=== PATIENT | male | born 1985 | race Caucasian/White ===

== ENCOUNTER 2025-09-08 13:56 | Emergency (ER) | payer OTHER, SELFPAY ==
--- NOTE | ~2025-09-08 | XR_ITS ---
EXAMINATION: XR FOOT 3 OR MORE VIEWS RIGHT HISTORY: redness near big toe. osteo? Fracture? COMPARISON: There are no prior studies available for comparison. FINDINGS: Three views of the right foot are submitted. Osseous mineralization is normal. There is no fracture or dislocation. The joint spaces are preserved. The soft tissues are unremarkable. XR/XR foot RT min 3V IMPRESSION: Unremarkable examination of the right foot. Electronically signed by: Mingo Stern MD 09/08/2025 02:36 PM EDT
[2025-09-08 14:15] VITALS: BP 130/62; PULSE 69; RESP 16; TEMP 37; O2SAT 97; BMI 31.7
[2025-09-08 14:30] LABS: MANUAL DIFF FLAG NO
[2025-09-08 14:31] LABS: Hematocrit 44.1 % (42.0-52.0); Hemoglobin 14.8 g/dl (14.0-18.0); Imm Gran Abs Auto 0.02 X10*3/uL (0.00-0.03); Imm Gran Pct Auto 0.3 % (0.0-0.4); Lymphocytes Absolute Auto 2.1 X10*3/uL (1.2-4.9); Mean Corpuscular HGB Conc 33.6 g/dl (31.0-36.0); Mean Corpuscular Hemoglobin 28.8 pg (27.0-33.0); Mean Corpuscular Volume 86.0 fL (80.0-98.0); NRBC Abs Auto 0.000 X10*3/uL (0.0-0.012); NRBC Pct Auto 0.0 /100WBC (0.0-0.2); Platelet Count 287 X10*3/uL (160-400); Red Blood Count 5.13 X10*6/uL (4.60-5.80); White Blood Count 7.6 X10*3/uL (4.8-10.8)
[2025-09-08 14:47] LABS: Alanine Aminotransferase 40 U/L (0-40); Albumin Level 5.3 g/dL (3.5-5.0); Alkaline Phosphatase 87 U/L (39-117); Anion Gap 14 (12-20); Aspartate Amino Transferase 24 U/L (5-37); Blood Urea Nitrogen 12 mg/dL (9-16); Calcium 10.3 mg/dL (8.4-10.2); Carbon Dioxide 27 mmol/L (22-29); Chloride 106 mmol/L (96-108); Creatinine Clr Calc Pharmacy 90.6; Estimated Glomerular Filt Rate > 60; Potassium 4.2 mmol/L (3.3-5.1); Sodium 143 mmol/L (135-145); Total Protein 8.2 g/dL (6.5-8.0); Uric Acid 11.1 mg/dL (3.4-7.0)
--- NOTE | 2025-09-08 15:17 | ED.GENADULT ---
HPI - General Adult General Chief complaint: Extremity Problem Stated complaint: R foot pain Time Seen by Provider: 09/08/25 14:52 Source: patient Mode of arrival: ambulatory Limitations: no limitations History of Present Illness ED Provider: Nazario Boyer HPI narrative: 39 yold male presents to the ED for pain at joint of right big toe without any trauma. Patietn states also redness. patient states no fever, chills, open wounds, or pmh of diabetes Related Data Previous Rx's ?Medication ?Instructions ?Recorded cephalexin 500 mg capsule 500 mg PO Q12H 7 days #14 caps 09/08/25 indomethacin 50 mg capsule 50 mg PO QID 5 days #20 caps 09/08/25 prednisone 20 mg tablet 40 mg (2 x 20 mg) PO DAILY 5 days 09/08/25 #10 tabs Allergies Allergy/AdvReac Type Severity Reaction Status Date / Time Sulfa (Sulfonamide Allergy Unknown Verified 09/08/25 14:17 Antibiotics) Review of Systems Review of Systems: right big toe joint redness/pain Yes all other systems are reviewed and are negative [facility] Social History Social History Advance Directives: No Advance Directives Information Provided: No Physical Exam ED Vital Signs: Vital Signs - 24 hr 09/08/25 14:15 Temperature 98.6 F Pulse Rate 69 Respiratory Rate 16 Blood Pressure 130/62 Pulse Oximetry 97 Oxygen Delivery Method Room Air BMI result Body Mass Index 31.7 Const General: cooperative, healthy appearing, comfortable, no acute distress, well developed, alert, awake and Physically active Orientation/consciousness: patient oriented x3 HENMT Head: Yes normal to inspection, Yes No palpable skull fracture present, Yes normocephalic and Yes atraumatic Ears: hearing grossly normal bilaterally, external ears normal and TM's normal bilaterally General nose exam: Normal external nose present, Normal nares present and No nasal polyps present Mouth: Normal oral and palatal mucosa present, lip normal and tongue normal Throat: Yes posterior oropharynx normal, Yes tonsils normal and Yes uvula midline Eyes General: appearance normal, both eyes and all related structures Neck Neck: Yes normal visual inspection, Yes full ROM, Yes no lymphadenopathy, Yes no meningeal signs, Yes trachea midline, Yes supple, No anterior neck swelling and No tender Chest Chest palpation & inspection: normal inspection of the chest and normal palpation of entire chest wall Resp Effort & Inspection: normal respiratory effort and able to speak in complete sentences Cardio Jugular venous distension: no JVD Heart sounds: S1 normal heart sound present and S2 normal heart sound present GI Inspection: Yes normal to inspection Palpation (GI): Soft to palpation, not firm, nontender, no guarding and not rigid General: Yes no CVA tenderness Back/Spine/Pelvis Back: no CVA tenderness and No back tenderness Skin General skin exam: no rashes or lesions noted, elasticity normal and turgor normal Neuro General: patient oriented x3, tone normal, moves all extremities, Normal light touch and pain sensation, no meningeal signs, no focal motor deficits and CN's II-XI intact bilaterally Extrem General: Yes normal to inspection, Yes full ROM and Yes capillary refill normal Ankle/foot/toe images:  1. positive for redness, swelling, tenderness. negative for ecchymosis, crepitus, wounds or deformities. rest of extremities normal. motor, neuro, and vascular exam is intact. 2. positive for redness, swelling, tenderness. negative for ecchymosis, crepitus, wounds or deformities. rest of extremities normal. motor, neuro, and vascular exam is intact. Psych Appearance: grossly normal, well kempt and not disheveled Medications Administered Discontinued Medications Generic Name Dose Route Start Last Admin Trade Name Freq PRN Reason Stop Dose Admin Ketorolac Tromethamine 30 mg 09/08/25 15:15 09/08/25 15:22 Ketorolac Tromethamine 30 Mg/Ml Vial IM 09/08/25 15:16 30 mg ONCE ONE Administration Prednisone 40 mg 09/08/25 15:15 09/08/25 15:22 Prednisone 20 Mg Tablet PO 09/08/25 15:16 40 mg ONCE ONE Administration Medical Decision Making Medical Decision Making [facility] Narrative: 39-year-old male presents to ED for pain near joint of right big toe without any trauma. Patient states redness and swelling in the area. Rest of the foot left lower extremity normal. Patient denies any calf pain, chest pain, fever, or chills. X-ray negative for fracture or signs of osteomyelitis. Labs indicative of uric acid elevation indicate of gout. Not suspecting osteomyelitis, DVT, necrotizing fasciitis, arterial occlusion, compartment syndrome, septic joint, or any other life-threatening etiology. Differential Diagnosis Differential Diagnoses: The differential diagnosis associated with the presentation includes (Gout, cellulitis, osteomyelitis, fracture) Admission/Observation Consideration of admission/observation: Escalation of care including admission/observation considered Lab Data MDM Lab Attestation statement: I reviewed the patient's lab results. 09/08/25 14:25 09/08/25 14:24 Labs: Lab Results 09/08/25 09/08/25 Range/Units 14:24 14:25 WBC 7.6 (4.8-10.8) X10*3/uL RBC 5.13 (4.60-5.80) X10*6/uL Hgb 14.8 (14.0-18.0) g/dl Hct 44.1 (42.0-52.0) % MCV 86.0 (80.0-98.0) fL MCH 28.8 (27.0-33.0) pg MCHC 33.6 (31.0-36.0) g/dl RDW 12.0 (11.0-16.0) % Plt Count 287 (160-400) X10*3/uL MPV 9.1 L (9.4-12.4) fL Immature Gran % (Auto) 0.3 (0.0-0.4) % Neut % (Auto) 57.7 (45-73) % Lymph % (Auto) 27.9 (20-40) % [place] % (Auto) 11.1 H (2-11) % Eos % (Auto) 2.5 (0-4) % Baso % (Auto) 0.5 (0-2) % Lymph # (Auto) 2.1 (1.2-4.9) X10*3/uL [place] # (Auto) 0.8 (0.1-1.2) X10*3/uL Eos # (Auto) 0.2 (0.0-0.4) X10*3/uL Baso # (Auto) 0.0 (0.0-0.2) X10*3/uL Abs Immat Gran (auto) 0.02 (0.00-0.03) X10*3/uL Absolute Neuts (auto) 4.4 (2.0-8.3) x10*3/uL Absolute Nucleated RBC 0.000 (0.0-0.012) X10*3/uL Nucleated RBC % (auto) 0.0 (0.0-0.2) /100WBC ESR 21 H (0-15) MM/HR Sodium 143 (135-145) mmol/L Potassium 4.2 (3.3-5.1) mmol/L Chloride 106 (96-108) mmol/L Carbon Dioxide 27 (22-29) mmol/L Anion Gap 14 (12-20) BUN 12 (9-16) mg/dL Creatinine 1.26 (0.5-1.4) mg/dL Estim Creat Clear Calc 90.6 Estimated GFR > 60 Random Glucose 115 (60-115) mg/dL Uric Acid 11.1 H (3.4-7.0) mg/dL Calcium 10.3 H (8.4-10.2) mg/dL Total Bilirubin 1.0 (0.0-1.0) mg/dL AST 24 (5-37) U/L ALT 40 (0-40) U/L Alkaline Phosphatase 87 (39-117) U/L C-Reactive Protein 6.01 H (< or = 0.50) mg/dL Total Protein 8.2 H (6.5-8.0) g/dL Albumin 5.3 H (3.5-5.0) g/dL Independent Interpretation I performed an independent interpretation of an: Plain X-Ray Radiology Impression Discussion of test interpretation with radiology: I have reviewed the radiologist's reading. Independent Historian Clinical information obtained from an independent historian. History obtained from or confirmed by: Other (patient) Discharge Plan Discharge Clinical Impression: Gout Patient Disposition: Home, Self-Care Instructions: Low Purine Diet (ED), Gout (ED) Additional Instructions: Recommend follow up with primary care provider. REturn to the ED immeidatley for any worsening pain, fever, chills, worsening redness, leg swelling, calf pain, chest pain, shortness of breath, or any other concerning symptoms. You will be discharged with indomethacin and steroids. ALso you will be discharged with antibiotics for possible celluliits. Prescriptions: New indomethacin 50 mg capsule 50 mg PO QID 5 Days Qty: 20 0RF Rx Instructions: administer with food or milk prednisone 20 mg tablet 40 mg PO DAILY 5 Days Qty: 10 0RF cephalexin 500 mg capsule 500 mg PO Q12H 7 Days Qty: 14 0RF Referrals: [facility], Internal Medicine] - 2 days Referral Note: Gout versus cellulitis exacerbation. Clinical Impression: Gout Stand Alone Forms: Work/School Release Interventions: ED Discharge Assessment Last Done: 09/08/25 15:58 Discharge Date/Time: 09/08/25 15:58 Print Language: Ecuadorean
[2025-09-08 15:58] VITALS: BP 130/62; PULSE 69; RESP 16; TEMP 37; O2SAT 97
--- OUTSIDE RECORDS SUMMARY | 2025-09-08 19:06 | XMS_ITS | Encounter Summary ---
Author Organization [facility] Address [address] [place] [address] Care Team Providers Care Pit Slagman Name Role Phone Pcp, No Primary Care Provider Unavailabl e Encounter Details Date Type Department Care Team (Late st Contact Info) Description 09/14/2021 Erroneous Encounter [facility]PT [address] [place] [phone] Provider, MD Sammie Social History Tobacco Use Types Packs/Day Years Used Date Smoking Tobacco: Never Assessed Sex and Gender Information Value Date Recorded Sex Assigned at Not on file Legal Sex Male 2:35 PM EDT Gender Identity Not on file Sexual Orientation Not on file documented as of this encounter Plan of Treatment Not on file documented as of this encounter Visit Diagnoses Not on filedocumented in this encounter Care Teams Pit Slagman Relationship Specialty Start Date End Date Pcp, No PCP - General 07/19/15 documented as of this encounter
--- OUTSIDE RECORDS SUMMARY | 2025-09-08 19:06 | XMS_ITS | Encounter Summary ---
Author Organization [facility] Address [address] [place] [address] Care Team Providers Care Resident Care Associate Name Role Phone Pcp, No Primary Care Provider Unavailabl e Encounter Details Date Type Department Care Team (Late st Contact Info) Description 08/20/2021 Erroneous Encounter [facility] [address] [place] [id number] Provider, MD Sammie Social History Tobacco Use [...] on filedocumented in this encounter Care Teams Resident Care Associate Relationship Specialty Start Date End Date Pcp, No PCP - General 07/19/15 documented as of this encounter
--- OUTSIDE RECORDS SUMMARY | 2025-09-08 19:06 | XMS_ITS | Encounter Summary ---
Author Organization [facility] Address [address] [place] [address] Care Team Providers Care Guest Relations Coordinator Name Role Phone Pcp, No Primary Care Provider Unavailabl e Encounter Details Date Type Department Care Team (Late st Contact Info) Description 07/23/2021 Erroneous Encounter [facility]PT [address] [place] [phone] Provider, MD Sammie Social History Tobacco Use [...] on filedocumented in this encounter Care Teams Guest Relations Coordinator Relationship Specialty Start Date End Date Pcp, No PCP - General 07/19/15 documented as of this encounter
--- OUTSIDE RECORDS SUMMARY | 2025-09-08 19:06 | XMS_ITS | Encounter Summary ---
Author Organization [facility] Address [address] [place] [address] Care Team Providers Care Nurse Emergency Room Name Role Phone Pcp, No Primary Care Provider Unavailabl e Encounter Details Date Type Department Care Team (Late st Contact Info) Description 12/07/2021 Erroneous Encounter [facility]PT [address] [place] [id number] Provider, MD Sammie Social History Tobacco Use [...] on filedocumented in this encounter Care Teams Nurse Emergency Room Relationship Specialty Start Date End Date Pcp, No PCP - General 07/19/15 documented as of this encounter
--- OUTSIDE RECORDS SUMMARY | 2025-09-08 19:06 | XMS_ITS | Encounter Summary ---
Author Organization [facility] Address [address] [place] [address] Care Team Providers Care Slope Hoist Operator Name Role Phone Pcp, No Primary Care Provider Unavailabl e Encounter Details Date Type Department Care Team (Late st Contact Info) Description 10/26/2021 Erroneous Encounter [facility]PT [address] [place] [place] [phone] Provider, MD Sammie Social History Tobacco Use [...] on filedocumented in this encounter Care Teams Slope Hoist Operator Relationship Specialty Start Date End Date Pcp, No PCP - General 07/19/15 documented as of this encounter
--- OUTSIDE RECORDS SUMMARY | 2025-09-08 19:06 | XMS_ITS | Clinical Summary ---
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/2015 Overview (08/26/2023): Regulatory diagnosis update for 08/24/23 Social History Tobacco Use Types Packs/Day Years Used Date Smoking Tobacco: Never Assessed Sex and Gender Information Value Date Recorded Sex Assigned at Not on file Legal Sex Male 2:35 PM EDT Gender Identity Not on file Sexual Orientation Not on file Plan of Treatment Health Maintenance Due Date Last Done Comments Hepatitis C Virus Screening 1985 HIV Screening 1998 DTaP/Tdap/Td Vaccines (1 - Tdap) 2004 Hepatitis B Vaccines (1 of 3 - 19+ 3-dose series) 2004 COVID-19 Vaccine (2023-2 5 season) 2025 HPV Vaccines (No Doses Required) Completed Pneumococcal Vaccine: Pediat chata (0-5 Years) and At-Risk Patients (6 to 49 Years) Aged Out No longer eligible b ased on patient's age to complete this topic Care Teams Terrazzo Installer Relationship Specialty Start Date End Date Pcp, No PCP - General 07/19/15
--- OUTSIDE RECORDS SUMMARY | 2025-09-08 19:06 | XMS_ITS | Encounter Summary ---
Author Organization [facility] Address [address] [place] [address] Care Team Providers Care Preparation Room Manager Name Role Phone Pcp, No Primary Care Provider Unavailabl e Encounter Details Date Type Department Care Team (Late st Contact Info) Description 07/19/2015 Scanned Document [address] [id number] Provider, Generic Social History Tobacco Use Types Packs/Day Years [...] on filedocumented in this encounter Care Teams Preparation Room Manager Relationship Specialty Start Date End Date Pcp, No PCP - General 07/19/15 documented as of this encounter
--- OUTSIDE RECORDS SUMMARY | 2025-09-08 19:06 | XMS_ITS | Clinical Summary ---
Author Organization [facility] Address [address] [place] [address] Care Team Providers Care Manager Global Communications Name Role Phone Unavailable Primary Care Provider Unavailabl e Allergies Active Allergy Reactions Criticality Noted Date Comments Sulfa Antibiotics Anaphylaxis High 08/02/2017 Medications Medication Sig Dispensed Refills Start Date End Date Status naproxen (NAPROSYN) 500 MG tablet Take 1 tablet (500 mg total) by mouth 2 (two) times a day with meals. 14 tablet 0 08/02/2017 Active traMADol (ULTRAM) 50 MG tablet Take 50 mg by mouth every 6 (six) hours as needed for pain. 20 tablet 0 08/02/2017 Active Social History Tobacco Use Types Packs/Day Years Used Date Smoking Tobacco: Some Days Cigarettes Alcohol Use Standard Drinks/Week Comments Yes 0 (1 standard drink = 0.6 oz pur e alcohol) social Sex and Gender Information Value Date Recorded Sex Assigned at Not on file Gender Identity Not on file Sexual Orientation Not on file Last Filed Vital Signs Vital Sign Reading Time Taken Comments Blood Pressure 160/77 08/02/2017 12:25 PM EDT Pulse 88 08/02/2017 12:25 PM EDT Temperature 36.7 C (98.1 F) 08/02/2017 12:25 PM EDT Respiratory Rate 18 08/02/2017 12:25 PM EDT Oxygen Saturation 96% 08/02/2017 12:25 PM EDT Inhaled Oxygen Concentration - - Weight 95.3 kg (210 lb) 08/02/2017 12:25 PM EDT Height 172.7 cm (5' 8 ) 08/02/2017 12:25 PM EDT Body Mass Index 31.93 08/02/2017 12:25 PM EDT Plan of Treatment Health Maintenance Due Date Last Done Comments Hepatitis B Vaccines (1 of 3 - 3-dose series) 1985 Hepatitis C Screening 1985 COVID-19 Vaccine (#1) 03/26/1986 Pneumococcal Vaccine (1 of 2 - PCV) 1991 Depression Screening 1997 Preventative Health Evaluation 2003 DTap / Tdap / Td (1 - Tdap) 2004 Influenza Vaccine (#1) 2025 RSV Ped < 20 months Aged Out No longe r eligible based on patient's age to complete this topic Jermaine Isaac Workers Comp Self 1985 [address] [facility] [place] [address] Jermaine Isaac Personal/Family Self 1985 [address] [facility] [place] [address]
== END 2025-09-08 15:58 | disposition home or self-care (01) ==
PROVIDERS: Physician Assistant; Emergency Provider Emergency Medicine
DX: M10.9 Gout, unspecified (principal)
CPT/HCPCS: 36415; 73630; 80053; 84550; 85025; 85652; 86140; 96372; 99283; 99284; J1885

== ENCOUNTER → 2025-09-08 14:18 | Outpatient (BNV) | payer SELFPAY | PROVIDERS: Visit Provider Radiology Diagnostic Radiology | DX: R21 Rash and other nonspecific skin eruption (principal) | CPT/HCPCS: 73630 ==